=== PATIENT | female | born 1950 ===

== ENCOUNTER 2017-01-18 22:15 | Observation (INO) | payer BC ==
[2017-01-18 22:36] VITALS: BMI 26.1
--- NOTE | 2017-01-18 22:56 | ED PDOC ---
Arrival/HPI - General Chief Complaint: High Blood Pressure Time Seen by Provider: 01/18/17 22:38 Historian: Patient, Family (Daughter) - History of Present Illness Narrative History of Present Illness (Text): 01/18/17 22:51 Natalia Maldonado is a 66 year old female, whose past medical history includes hypertension, who presents to the Emergency department accompanied by family for high blood pressure. Patient states, via daughter acting as rn palliative, she had an episode of dizziness and near syncope at home earlier tonight. Daughter states patient was unable to stand or ambulate secondary to dizziness. Patient took her blood pressure, which was 179/81 and then bennie up to 195/110. Daughter states patient took Valsartan at 20:15 and Xanax at 21:15. Patient denies any dizziness currently. Patient reports she had a similar episode a few weeks ago and had her hypertensive medications switched by her PMD. Patient denies any vision changes, focal neurological deficits, chest pain, shortness of breath, nausea, vomiting, neck pain, headache, or any other complaints. PMD: Dr. Naeem Rosas Time/Duration: Other (tonight) Symptom Onset: Gradual Symptom Course: Unchanged Activities at Onset: Rest, Light Context: Home Past Medical History - Provider Review Nursing Documentation Reviewed: Yes - Cardiac Hx Hypertension: Yes - Psychiatric Hx Substance Use: No Family/Social History - Physician Review Nursing Documentation Reviewed: Yes Family/Social History: No Known Family HX Smoking Status: no Hx Alcohol Use: No Hx Substance Use: No Allergies/Home Meds Allergies/Adverse Reactions: Allergies No Known Allergies Allergy (Verified 01/18/17 22:26) Home Medications: Home Meds Medication Instructions Recorded Confirmed Alprazolam [Xanax] 0.25 mg PO PRN PRN 01/18/17 01/18/17 Valsartan [Diovan] 80 mg PO BID 01/18/17 01/18/17 Review of Systems - Physician Review All systems were reviewed & negative as marked: Yes - Review of Systems Constitutional: Normal. absent: Fevers Eyes: Normal ENT: Normal Respiratory: Normal. absent: SOB, Cough Cardiovascular: Other (+near-syncopal, +elevated blood pressure). absent: Chest Pain Gastrointestinal: Normal. absent: Abdominal Pain, Diarrhea, Nausea, Vomiting Genitourinary Female: Normal. absent: Dysuria, Frequency, Hematuria, Urine Output Changes Musculoskeletal: Normal. absent: Back Pain, Neck Pain Skin: Normal. absent: Rash Neurological: Dizziness. absent: Headache Endocrine: Normal Hemo/Lymphatic: Normal Psychiatric: Normal Physical Exam Vital Signs Reviewed: Yes Vital Signs Temp Pulse Resp BP Pulse Ox 01/19/17 00:53 84 16 156/82 H 100 01/18/17 22:32 97.5 F L 103 H 168/94 H 98 01/18/17 22:28 97.5 F L 103 H 18 168/94 H 98 Temperature: Afebrile Blood Pressure: Hypertensive Pulse: Regular Respiratory Rate: Normal Appearance: Positive for: Well-Appearing, Non-Toxic, Comfortable Pain Distress: None Mental Status: Positive for: Alert and Oriented X 3 - Systems Exam Head: Present: Atraumatic, Normocephalic Pupils: Present: PERRL Extroacular Muscles: Present: EOMI Conjunctiva: Present: Normal Ears: Present: Normal, NORMAL TM, Normal Canal. No: Erythema, TM Bulging, Fluid , TM Perf Mouth: Present: Moist Mucous Membranes Pharnyx: Present: Normal. No: ERYTHEMA, EXUDATE, TONSILS ENLARGED, Peritonsilar Swelling, Uvular Deviation, Muffled/Hoarse Voice, Strider, Soft Palate/Uvular Edema Nose (External): Present: Atraumatic Nose (Internal): Present: Normal Inspection Neck: Present: Normal Range of Motion. No: Meningeal Signs, MIDLINE TENDERNESS , Paraspinal Tenderness Respiratory/Chest: Present: Clear to Auscultation, Good Air Exchange. No: Respiratory Distress, Accessory Muscle Use Cardiovascular: Present: Regular Rate and Rhythm, Normal S1, S2. No: Murmurs Abdomen: Present: Normal Bowel Sounds. No: Tenderness, Distention, Peritoneal Signs Upper Extremity: Present: Normal Inspection. No: Cyanosis, Edema Lower Extremity: Present: Normal Inspection. No: Edema Neurological: Present: GCS=15, CN II-XII Intact, Speech Normal, Motor Func Grossly Intact, Normal Sensory Function, Normal Cerebellar Funct, Memory Normal Skin: Present: Warm, Dry, Normal Color. No: Rashes Psychiatric: Present: Alert, Oriented x 3, Normal Insight, Normal Concentration Medical Decision Making ED Course and Treatment: 01/18/17 22:51 Impression: 66 year old female complaining of elevated blood pressure, dizziness, and near- syncope tonight. Differential Diagnosis include but are not limited to: near-syncope vs. hypertension Plan: -- CT Head w/o contrast -- EKG -- Chest X-ray -- Labs, cardiac enzymes -- Reassess and disposition Progress Notes: 01/18/17 23:08 Reviewed EKG, sinus tachycardia at [address] bpm[address] Non-specific ST/T wave changes. 01/18/17 23:18 Reviewed Chest X-ray, shows no active disease. 01/19/17 00:31 Reviewed radiology, CT Head shows: No acute intracranial hemorrhage, or suspicious mass effect. 01/19/17 01:03 Case discussed with medical professionals research contracts supervisor, who is aware and agrees with plan. 01/19/17 01:[address] Mathews, who is aware and agrees with plan. Accepts pt in to hospitalist service. Pt will go to Telemetry observation for near-syncope. - Lab Interpretations Lab Results: 01/18/17 23:29 01/18/17 23:29 Lab Results 01/18/17 23:29: WBC 8.7, RBC 4.17, Hgb 12.7, Hct 37.4, MCV 89.7, MCH 30.5, MCHC 34.0, RDW 12.9, Plt Count 291, MPV 10.0 01/18/17 23:29: Sodium 138, Potassium 4.7, Chloride 103, Carbon Dioxide 26, Anion Gap 14, BUN 15, Creatinine 0.6, Est GFR ( Amer) > 60, Est GFR (Non- Af Amer) > 60, Random Glucose 204 H, Calcium 9.5, Total Bilirubin 0.6, AST 29, ALT 33, Alkaline Phosphatase 40, Lactate Dehydrogenase 415, Total Creatine Kinase 56, Troponin I < 0.01, Total Protein 7.4, Albumin 4.2, Globulin 3.2, Albumin/Globulin Ratio 1.3 01/18/17 23:29: PT 10.4, INR 0.96, APTT 24.5 I have reviewed the lab results: Yes - RAD Interpretation Narrative RAD Interpretations (Text): CT Head shows: Brain: No acute intracranial hemorrhage. No significant white matter disease. No edema. Ventricles: No significant ventriculomegaly. Bones: No acute displaced fracture. Sinuses: Unremarkable as visualized. No acute sinusitis. Mastoid air cells: Unremarkable as visualized. No mastoid effusion. IMPRESSION: No acute intracranial hemorrhage, or suspicious mass effect. Radiology Orders: 01/18/17 22:58 HEAD W/O CONTRAST [CT] Stat CHEST PORTABLE [RAD] Stat Leather Grader: ED Physician, Radiologist - EKG Interpretation Interpreted by ED Physician: Yes Type: 12 lead EKG - Scribe Statement The provider has reviewed the documentation as recorded by the Scribe Anu Thurman All medical record entries made by the Scribe were at my direction and personally dictated by me. I have reviewed the chart and agree that the record accurately reflects my personal performance of the history, physical exam, medical decision making, and the department course for this patient. I have also personally directed, reviewed, and agree with the discharge instructions and disposition. Disposition/Present on Arrival - Present on Arrival Any Indicators Present on Arrival: No History of DVT/PE: No History of Uncontrolled Diabetes: No Urinary Catheter: No History of Decub. Ulcer: No History Surgical Site Infection Following: None - Disposition Have Diagnosis and Disposition been Completed?: Yes Diagnosis: Near syncope Disposition: HOSPITALIZED Disposition Time: 01:18 Patient Plan: Observation Condition: STABLE Referrals: Mike Rosas MD [Primary Care Provider] - Follow up with primary
[2017-01-18 23:51] LABS: HEMATOCRIT 37.4 % (36.0-48.0); MEAN CELL VOLUME 89.7 fL (80.0-105.0); MEAN CORPUSCULAR HEMOGLOBIN 30.5 pg (25.0-35.0); RED CELL DISTRIBUTION WIDTH 12.9 % (11.5-14.5); WHITE BLOOD COUNT 8.7 10^3/ul (4.5-11.0)
[2017-01-18 23:57] LABS: INR 0.96 (0.93-1.08); PARTIAL THROMBOPLASTIN TIME 24.5 Seconds (23.7-30.8)
[2017-01-19 00:35] LABS: ALB/GLOB RATIO 1.3 (1.1-1.8); ALKALINE PHOSPHATASE 40 U/L (38-133); ALT/SGPT 33 U/L (7-56); AST/SGOT 29 U/L (15-39); BILIRUBIN,TOTAL 0.6 mg/dL (0.2-1.3); BLOOD UREA NITROGEN 15 mg/dL (7-21); CALCIUM 9.5 mg/dL (8.4-10.5); CARBON DIOXIDE 26 mmol/L (21-33); CHLORIDE 103 mmol/L (98-107); GFR AFRICAN-AMERICAN > 60; GLUCOSE,RANDOM 204 mg/dL (70-110); POTASSIUM 4.7 mmol/L (3.6-5.0); SODIUM 138 mmol/L (132-148); TOTAL PROTEIN 7.4 g/dL (5.8-8.3)
[2017-01-19 00:45] LABS: TROPONIN I < 0.01 ng/mL
[2017-01-19] MEDS ORDERED: Sodium Chloride 0.9% 1,000 ML IV SCH (01:45)
--- NOTE | 2017-01-19 01:47 | CP.PCM.HP ---
History of Present Illness - History of Present Illness History of Present Illness: History of Present Illness: The patient is a 66 year old woman with a history of hypertension who had a pre- syncopal episode yesterday at around 5pm while she was cooking in her home. The patient suddenly became dizzy and the room started to spin, causing her to lose her balance and almost fall. Luckily the patient's daughter was nearby and able to prevent her from falling down and injuring herself. She denies loss of consciousness or preceding chest pain or SOB. She does report associated diaphoresis. After the incident, the patients blood pressure (taken by her daughter) was elevated at 195/110. The patient had a similar pre-syncopal episode about 2 weeks ago, for which she presented to her PMD, who subsequently changed her blood pressure medication dosage and also started her on PRN Xanax for anxiety. The patient admits to being a generally anxious person. She denies any recent head trauma, focal neurological deficits, chest pain, SOB, cough, headaches, N/V, fever or chills. Home Medications: Valsartan 80mg po BID Xanax 0.25 PRN anxiety Allergies: NKDA Past Medical History: Per HPI Past Surgical History: None Family History: Patients father had a CABG in his 60s Social History: Denies tobacco and illicit drug use Small glass of wine with dinner every night Review of Systems: 14 bodily systems reviewed and found to be negative except as noted in the HPI Present on Admission - Present on Admission Any Indicators Present on Admission: No History of DVT/PE: No Past Patient History - Past Social History Smoking Status: no - CARDIAC Hx Hypertension: Yes - PSYCHIATRIC Hx Substance Use: No Meds Allergies/Adverse Reactions: Allergies Allergy/AdvReac Type Severity Reaction Status Date / Time No Known Allergies Allergy Verified 01/18/17 22:26 Physical Exam - Constitutional Appears: Well - Head Exam Head Exam: ATRAUMATIC, NORMAL INSPECTION, NORMOCEPHALIC - Eye Exam Eye Exam: EOMI, Normal appearance, PERRL Pupil Exam: NORMAL ACCOMODATION - ENT Exam ENT Exam: Mucous Membranes Moist, Normal Exam - Respiratory Exam Respiratory Exam: Clear to Auscultation Bilateral, NORMAL BREATHING PATTERN - Cardiovascular Exam Cardiovascular Exam: Tachycardia, REGULAR RHYTHM, +S1, +S2 - GI/Abdominal Exam GI & Abdominal Exam: Normal Bowel Sounds, Soft. absent: Tenderness - Rectal Exam Rectal Exam: Deferred - Extremities Exam Additional comments: Trace, symmetric bipedal edema - Neurological Exam Neurological exam: Alert, CN II-XII Intact, Normal Gait, Oriented x3, Reflexes Normal Additional comments: 5/5 muscle strength in all four extremities; Normal [id number] testing Results - Vital Signs Recent Vital Signs: Last Vital Signs Temp 97.5 F L 01/18/17 22:32 Pulse 84 01/19/17 00:53 Resp 16 01/19/17 00:53 BP 156/82 H 01/19/17 00:53 Pulse Ox 100 01/19/17 00:53 - Labs Result Diagrams: 01/18/17 23:29 01/18/17 23:29 - Imaging and Cardiology Chest x-ray Status: Report reviewed by me Assessment & Plan - Assessment and Plan (Free Text) Plan: Assessment and Plan: The patient is a 66 year old woman with a history of hypertension, being admitted for observation to the telemetry reeder for further work-up of her recurring pre-syncope and uncontrolled hypertension. 1. Recurring Pre-Syncope: -ddx: orthostasis vs vasovagal vs anxiety vs cardiac vs neurological -check orthostatics -start NS IV @ 100cc/hr -neuro checks every 4 hours -keep HOB above 30 degrees -fall precautions -check TSH, lipid panel, HgA1c and a UA -check serial trops and EKGs -2D-echo to evaluate for structural heart disease -cardiology consult placed (Dr. Calderon) -CT-head shows no acute abnormalities -will start ASA 81mg daily -continue home dose of PRN Xanax for anxiety 2. Uncontrolled Hypertension: -heart healthy diet (2 gram sodium) -will increase dose of Valsartan from 160mg to 320mg daily -will also start Norvasc 5mg daily -Labetalol 100mg po TID PRN SBP>165 DVT PPx: SCDs and SC Lovenox GI PPx: Protonix
[2017-01-19 02:58] VITALS: RESP 20
[2017-01-19 03:05] LABS: URINE BILIRUBIN NEGATIVE (NEGATIVE); URINE BLOOD NEGATIVE (NEGATIVE); URINE GLUCOSE (UA) 500 mg/dL (NEGATIVE); URINE KETONE NEGATIVE (NEGATIVE); URINE LEUKOCYTE ESTERASE NEGATIVE Leu/uL (NEGATIVE); URINE PROTEIN NEGATIVE mg/dL (<30 mg/dL); URINE UROBILINOGEN 0.2 E.U./dL (<1 E.U./dL)
[2017-01-19 03:06] LABS: URINE APPEARANCE CLEAR (CLEAR); URINE COLOR YELLOW (YELLOW)
[2017-01-19 05:08] VITALS: TEMP 97.6; O2SAT 98
--- NOTE | 2017-01-19 07:12 | CT ---
PROCEDURE: CT HEAD WITHOUT CONTRAST. HISTORY: dizzy COMPARISON: None available. TECHNIQUE: Axial computed tomography images were obtained through the head/brain without intravenous contrast. Radiation dose: Total exam DLP = 688 mGy-cm. This CT exam was performed using one or more of the following dose reduction techniques: Automated exposure control, adjustment of the mA and/or kV according to patient size, and/or use of iterative reconstruction technique. FINDINGS: HEMORRHAGE: No intracranial hemorrhage. BRAIN: No mass effect or edema. No atrophy or chronic microvascular ischemic changes. VENTRICLES: Unremarkable. No hydrocephalus. CALVARIUM: Unremarkable. PARANASAL SINUSES: Unremarkable as visualized. No significant inflammatory changes. MASTOID AIR CELLS: Unremarkable as visualized. No inflammatory changes. OTHER FINDINGS: None. IMPRESSION: Normal CT of the Head.
[2017-01-19 08:09] LABS: ADD MANUAL DIFF? NO
[2017-01-19 08:13] LABS: BASO # 0.04 K/mm3 (0.0-2.0); BASO % 0.6 % (0.0-3.0); EOS # 0.1 (0.0-0.7); EOS % 0.9 % (1.5-5.0); GRAN # 4.66 (1.4-6.5); GRAN % 66.3 % (50.0-68.0); HEMATOCRIT 37.1 % (36.0-48.0); LYMPH # 1.8 (1.2-3.4); LYMPH % 26.1 % (22.0-35.0); MEAN CELL VOLUME 91.2 fL (80.0-105.0); MEAN CORPUSCULAR HEMOGLOBIN 30.7 pg (25.0-35.0); MEAN CORPUSCULAR HGB CONC 33.7 g/dl (31.0-37.0); MEAN PLATELET VOLUME 10.7 fl (7.0-11.0); MONO # 0.4 (0.1-0.6); MONO % 6.1 % (1.0-6.0); PLATELET COUNT 305 10^3/uL (120.0-450.0)
--- NOTE | 2017-01-19 08:37 | RAD ---
HISTORY: Dizziness COMPARISON: No prior. FINDINGS: LUNGS: The lungs are well inflated and clear. PLEURA: No significant pleural effusion identified, no pneumothorax apparent. CARDIOVASCULAR: Normal. OSSEOUS STRUCTURES: There are multilevel degenerative changes in the spine. VISUALIZED UPPER ABDOMEN: Normal. OTHER FINDINGS: None. IMPRESSION: No active pulmonary disease.
[2017-01-19 08:44] LABS: ALB/GLOB RATIO 1.3 (1.1-1.8); ALKALINE PHOSPHATASE 38 U/L (38-133); ALT/SGPT 35 U/L (7-56); AST/SGOT 29 U/L (15-39); BLOOD UREA NITROGEN 12 mg/dL (7-21); CALCIUM 9.3 mg/dL (8.4-10.5); CARBON DIOXIDE 24 mmol/L (21-33); CHLORIDE 107 mmol/L (98-107); CHOLESTEROL 200 mg/dL (130-200); GFR AFRICAN-AMERICAN > 60; GLUCOSE,RANDOM 89 mg/dL (70-110); PHOSPHOROUS 3.9 mg/dL (2.5-4.5); POTASSIUM 4.3 mmol/L (3.6-5.0); SODIUM 139 mmol/L (132-148); TOTAL PROTEIN 6.8 g/dL (5.8-8.3)
[2017-01-19 08:47] LABS: TROPONIN I 0.02 ng/mL
[2017-01-19 09:13] VITALS: BP 152/82
[2017-01-19] MEDS ORDERED: Enoxaparin 30 mg Syringe SC SCH (10:00)
[2017-01-19] MEDS ORDERED: Pantoprazole 40 mg EC Tab PO SCH (10:00)
--- NOTE | 2017-01-19 11:26 | CON ---
DATE: 01/19/2017 HISTORY OF PRESENT ILLNESS: The patient is a 66-year-old woman with a history of hypertension who pr esents with dizziness, no syncope noted. The patient was found to have accelerated hypertension. No diabetes mellitus noted. The patient has no previous cardiac history. No chest pain or shortness of breath. SOCIAL HISTORY: The patient does not smoke. REVIEW OF SYSTEMS: A 14-point review of systems was reviewed in detail. No cardiac symptomatology n oted. PHYSICAL EXAMINATION: VITAL SIGNS: Blood pressure is 152/82, the heart rate is in the 80s. NECK: Negative JVD. LUNGS: Without rales. HEART: Reveals S1, S2. EXTREMITIES: Without edema. EKG is unremarkable. LABORATORIES: Troponins are negative x 2. The glucose was transiently elevated. Cholesterol is 200. IMPRESSION: 1. Accelerated hypertension. 2. Transient dizziness, which is now resolved. 3. Borderline hypercholesterolemia. 4. No evidence for acute coronary syndrome. Given these findings, the patient can be discharged today. I have given the patient Diovan 180 with hydrochlorothiazide for blood pressure control. We will bring the patient back for an outpatient car diac evaluation. Telly Calderon MD cc: [id number] TT: 01/19/2017 11:26:08 Confirmation # [id number] Dictation # [id number]
[2017-01-19 12:19] VITALS: PULSE 70
--- NOTE | 2017-01-19 12:55 | CP.PCM.DIS ---
<Rocio Mejía - Last Filed: 01/19/17 14:15> Provider - Provider Date of Admission: 01/19/17 01:18 Attending physician: Erica Lagunas MD Primary care physician: Mike Rosas MD Consults: Dr. Telly Calderon Time Spent in preparation of Discharge (in minutes): 35 Hospital Course - Lab Results Lab Results: Most Recent Lab Values WBC 7.0 10^3/ul (4.5-11.0) 01/19/17 07:30 RBC 4.07 10^6/uL (3.5-6.1) 01/19/17 07:30 Hgb 12.5 gm/dL (12.0-16.0) 01/19/17 07:30 Hct 37.1 % (36.0-48.0) 01/19/17 07:30 MCV 91.2 fL (80.0-105.0) 01/19/17 07:30 MCH 30.7 pg (25.0-35.0) 01/19/17 07:30 MCHC 33.7 g/dl (31.0-37.0) 01/19/17 07:30 RDW 13.0 % (11.5-14.5) 01/19/17 07:30 Plt Count 305 10^3/uL (120.0-450.0) 01/19/17 07:30 MPV 10.7 fl (7.0-11.0) 01/19/17 07:30 Gran % 66.3 % (50.0-68.0) 01/19/17 07:30 Lymph % (Auto) 26.1 % (22.0-35.0) 01/19/17 07:30 [place] % (Auto) 6.1 % (1.0-6.0) H 01/19/17 07:30 Eos % (Auto) 0.9 % (1.5-5.0) L 01/19/17 07:30 Baso % (Auto) 0.6 % (0.0-3.0) 01/19/17 07:30 Gran # 4.66 (1.4-6.5) 01/19/17 07:30 Lymph # 1.8 (1.2-3.4) 01/19/17 07:30 [place] # 0.4 (0.1-0.6) 01/19/17 07:30 Eos # 0.1 (0.0-0.7) 01/19/17 07:30 Baso # 0.04 K/mm3 (0.0-2.0) 01/19/17 07:30 PT 10.4 Seconds (9.9-11.8) 01/18/17 23:29 INR 0.96 (0.93-1.08) 01/18/17 23:29 APTT 24.5 Seconds (23.7-30.8) 01/18/17 23:29 Sodium 139 mmol/L (132-148) 01/19/17 07:30 Potassium 4.3 mmol/L (3.6-5.0) 01/19/17 07:30 Chloride 107 mmol/L (98-107) 01/19/17 07:30 Carbon Dioxide 24 mmol/L (21-33) 01/19/17 07:30 Anion Gap 12 (10-20) 01/19/17 07:30 BUN 12 mg/dL (7-21) 01/19/17 07:30 Creatinine 0.6 mg/dL (0.5-1.4) 01/19/17 07:30 Est GFR ( Amer) > 60 01/19/17 07:30 Est GFR (Non-Af Amer) > 60 01/19/17 07:30 Random Glucose 89 mg/dL (70-110) 01/19/17 07:30 Hemoglobin A1c 5.9 % (4.2-6.5) 01/19/17 07:40 Calcium 9.3 mg/dL (8.4-10.5) 01/19/17 07:30 Phosphorus 3.9 mg/dL (2.5-4.5) 01/19/17 07:30 Magnesium 2.0 mg/dL (1.7-2.2) 01/19/17 07:30 Total Bilirubin 1.0 mg/dL (0.2-1.3) 01/19/17 07:30 AST 29 U/L (15-39) 01/19/17 07:30 ALT 35 U/L (7-56) 01/19/17 07:30 Alkaline Phosphatase 38 U/L (38-133) 01/19/17 07:30 Lactate Dehydrogenase 415 U/L (333-699) 01/18/17 23:29 Total Creatine Kinase 54 U/L (35-230) 01/19/17 07:30 Troponin I 0.02 ng/mL D 01/19/17 07:30 NT-Pro-B Natriuret Pep 186 pg/mL (0-450) 01/19/17 07:30 Total Protein 6.8 g/dL (5.8-8.3) 01/19/17 07:30 Albumin 3.9 g/dL (3.0-4.8) 01/19/17 07:30 Globulin 2.9 gm/dL 01/19/17 07:30 Albumin/Globulin Ratio 1.3 (1.1-1.8) 01/19/17 07:30 Triglycerides 48 mg/dL (35-160) 01/19/17 07:30 Cholesterol 200 mg/dL (130-200) 01/19/17 07:30 LDL Cholesterol Direct 124 mg/dL (0-129) 01/19/17 07:30 HDL Cholesterol 71 mg/dL (29-60) H 01/19/17 07:30 TSH 3rd Generation 1.30 mIU/mL (0.46-4.68) 01/19/17 07:40 Urine Color Yellow (YELLOW) 01/19/17 02:50 Urine Appearance Clear (CLEAR) 01/19/17 02:50 Urine pH 7.0 (4.7-8.0) 01/19/17 02:50 Ur Specific [place] 1.010 (1.005-1.035) 01/19/17 02:50 Urine Protein Negative mg/dL (<30 mg/dL) 01/19/17 02:50 Urine Glucose (UA) 500 mg/dL (NEGATIVE) H 01/19/17 02:50 Urine Ketones Negative mg/dL (NEGATIVE) 01/19/17 02:50 Urine Blood Negative (NEGATIVE) 01/19/17 02:50 Urine Nitrate Negative (NEGATIVE) 01/19/17 02:50 Urine Bilirubin Negative (NEGATIVE) 01/19/17 02:50 Urine Urobilinogen 0.2 E.U./dL (<1 E.U./dL) 01/19/17 02:50 Ur Leukocyte Esterase Negative Mary/uL (NEGATIVE) 01/19/17 02:50 - Hospital Course Hospital Course: 66 year old woman with a history of hypertension who had a pre-syncopal episode during PM of 01/17/2017. The patient suddenly became dizzy and the room started to spin, causing her to lose her balance and almost fall. Luckily the patient' s daughter was nearby and able to prevent her from falling down and injuring herself. Measured home BP elevated at 195/110. Head CT negative, and initial BP elevated. Initial troponin is negative, EKG NSR. Telemetry obs for near- syncope. On floor: IV NS, ASA 81 daily, and increased pt's home valsartan for blood pressure control. Dizziness and accelerated blood pressure resolved during admission. Troponins negative times 2. Pt discharged in stable condition with the following directions: You are discharged to home. Please see your primary care physician within a week. Please follow-up with Dr. Calderon for outpatient cardiac evaluation. Please stop taking your current home valsartan prescription and instead take Diovan 160-12.5mg one tab daily for your blood pressure, which is the paper prescription that Dr. Calderon gave you earlier today. Otherwise please continue your home medications. Please return to the hospital for worsening of symptoms. Discharge Exam - Head Exam Head Exam: ATRAUMATIC, NORMOCEPHALIC - Eye Exam Eye Exam: EOMI, Normal appearance Pupil Exam: NORMAL ACCOMODATION, PERRL - Respiratory Exam Respiratory Exam: NORMAL BREATHING PATTERN, UNREMARKABLE - Cardiovascular Exam Cardiovascular Exam: +S1, +S2 - GI/Abdominal Exam GI & Abdominal Exam: Soft. absent: Tenderness - Exam External exam: absent: Ecchymosis, Erythema - Extremities Exam Extremities exam: normal capillary refill, pedal pulses present - Back Exam Back exam: absent: CVA tenderness (L), CVA tenderness (R) - Psychiatric Exam Psychiatric exam: Normal Affect, Normal Mood - Skin Skin Exam: Intact, Normal Color Discharge Plan - Discharge Medications Prescriptions: Valsartan/Hydrochlorothiazide [Diovan Hct 160-12.5 mg Tab] 1 each PO DAILY #90 tablet - Follow Up Plan Condition: STABLE Disposition: HOME/ ROUTINE Instructions: Syncope (DC) Additional Instructions: You are discharged to home. Please see your primary care physician within a week. Please follow-up with Dr. Calderon for outpatient cardiac evaluation. Please stop taking your current home valsartan prescription and instead take Diovan 160-12.5mg one tab daily for your blood pressure, which is the paper prescription that Dr. Calderon gave you earlier today. Otherwise please continue your home medications. Please return to the hospital for worsening of symptoms. Referrals: Mike Rosas MD [Primary Care Provider] - Telly Calderon MD [Staff Provider] - <Janneth BEAULIEU,Erica - Last Filed: 01/19/17 16:27> Provider - Provider Date of Admission: 01/19/17 01:18 Attending physician: Erica Lagunas MD Primary care physician: Mike Rosas MD Hospital Course - Lab Results Lab Results: Most Recent Lab Values WBC 7.0 10^3/ul (4.5-11.0) 01/19/17 07:30 RBC 4.07 10^6/uL (3.5-6.1) 01/19/17 07:30 Hgb 12.5 gm/dL (12.0-16.0) 01/19/17 07:30 Hct 37.1 % (36.0-48.0) 01/19/17 07:30 MCV 91.2 fL (80.0-105.0) 01/19/17 07:30 MCH 30.7 pg (25.0-35.0) 01/19/17 07:30 MCHC 33.7 g/dl (31.0-37.0) 01/19/17 07:30 RDW 13.0 % (11.5-14.5) 01/19/17 07:30 Plt Count 305 10^3/uL (120.0-450.0) 01/19/17 07:30 MPV 10.7 fl (7.0-11.0) 01/19/17 07:30 Gran % 66.3 % (50.0-68.0) 01/19/17 07:30 Lymph % (Auto) 26.1 % (22.0-35.0) 01/19/17 07:30 [place] % (Auto) 6.1 % (1.0-6.0) H 01/19/17 07:30 Eos % (Auto) 0.9 % (1.5-5.0) L 01/19/17 07:30 Baso % (Auto) 0.6 % (0.0-3.0) 01/19/17 07:30 Gran # 4.66 (1.4-6.5) 01/19/17 07:30 Lymph # 1.8 (1.2-3.4) 01/19/17 07:30 [place] # 0.4 (0.1-0.6) 01/19/17 07:30 Eos # 0.1 (0.0-0.7) 01/19/17 07:30 Baso # 0.04 K/mm3 (0.0-2.0) 01/19/17 07:30 PT 10.4 Seconds (9.9-11.8) 01/18/17 23:29 INR 0.96 (0.93-1.08) 01/18/17 23:29 APTT 24.5 Seconds (23.7-30.8) 01/18/17 23:29 Sodium 139 mmol/L (132-148) 01/19/17 07:30 Potassium 4.3 mmol/L (3.6-5.0) 01/19/17 07:30 Chloride 107 mmol/L (98-107) 01/19/17 07:30 Carbon Dioxide 24 mmol/L (21-33) 01/19/17 07:30 Anion Gap 12 (10-20) 01/19/17 07:30 BUN 12 mg/dL (7-21) 01/19/17 07:30 Creatinine 0.6 mg/dL (0.5-1.4) 01/19/17 07:30 Est GFR ( Amer) > 60 01/19/17 07:30 Est GFR (Non-Af Amer) > 60 01/19/17 07:30 Random Glucose 89 mg/dL (70-110) 01/19/17 07:30 Hemoglobin A1c 5.9 % (4.2-6.5) 01/19/17 07:40 Calcium 9.3 mg/dL (8.4-10.5) 01/19/17 07:30 Phosphorus 3.9 mg/dL (2.5-4.5) 01/19/17 07:30 Magnesium 2.0 mg/dL (1.7-2.2) 01/19/17 07:30 Total Bilirubin 1.0 mg/dL (0.2-1.3) 01/19/17 07:30 AST 29 U/L (15-39) 01/19/17 07:30 ALT 35 U/L (7-56) 01/19/17 07:30 Alkaline Phosphatase 38 U/L (38-133) 01/19/17 07:30 Lactate Dehydrogenase 415 U/L (333-699) 01/18/17 23:29 Total Creatine Kinase 54 U/L (35-230) 01/19/17 07:30 Troponin I 0.02 ng/mL D 01/19/17 07:30 NT-Pro-B Natriuret Pep 186 pg/mL (0-450) 01/19/17 07:30 Total Protein 6.8 g/dL (5.8-8.3) 01/19/17 07:30 Albumin 3.9 g/dL (3.0-4.8) 01/19/17 07:30 Globulin 2.9 gm/dL 01/19/17 07:30 Albumin/Globulin Ratio 1.3 (1.1-1.8) 01/19/17 07:30 Triglycerides 48 mg/dL (35-160) 01/19/17 07:30 Cholesterol 200 mg/dL (130-200) 01/19/17 07:30 LDL Cholesterol Direct 124 mg/dL (0-129) 01/19/17 07:30 HDL Cholesterol 71 mg/dL (29-60) H 01/19/17 07:30 TSH 3rd Generation 1.30 mIU/mL (0.46-4.68) 01/19/17 07:40 Urine Color Yellow (YELLOW) 01/19/17 02:50 Urine Appearance Clear (CLEAR) 01/19/17 02:50 Urine pH 7.0 (4.7-8.0) 01/19/17 02:50 Ur Specific [place] 1.010 (1.005-1.035) 01/19/17 02:50 Urine Protein Negative mg/dL (<30 mg/dL) 01/19/17 02:50 Urine Glucose (UA) 500 mg/dL (NEGATIVE) H 01/19/17 02:50 Urine Ketones Negative mg/dL (NEGATIVE) 01/19/17 02:50 Urine Blood Negative (NEGATIVE) 01/19/17 02:50 Urine Nitrate Negative (NEGATIVE) 01/19/17 02:50 Urine Bilirubin Negative (NEGATIVE) 01/19/17 02:50 Urine Urobilinogen 0.2 E.U./dL (<1 E.U./dL) 01/19/17 02:50 Ur Leukocyte Esterase Negative Mary/uL (NEGATIVE) 01/19/17 02:50 Attending/Attestation - Attestation I have personally seen and examined this patient.: Yes I have fully participated in the care of the patient.: Yes I have reviewed all pertinent clinical information, including history, physical exam and plan: Yes Notes (Text): 01/19/17 16:23 Patient was seen and examined with medical assistant dermatology .Agreed with resident assessment and plan. Management plan was discussed in detail with patient Education was provided. 66 year old woman with a history of hypertension was admitted with dizziness, and Pre syncope due to uncontrol HTN, Patient blood pressure has improved.Her symptoms has resolved .She is ambulatory.She was evaluated by cardiology, no further inpatient work up is recommended.Patient will be discharged home on Diovon 160/HCT 12.5 MG and will follow up with PCP and cardiology.
--- NOTE | 2017-01-19 16:22 | CARD ---
APPROVED REPORT EKG Measurement Heart [id number] <Conclusion> Sinus tachycardia Nonspecific ST abnormality Abnormal ECG
== END 2017-01-19 13:23 | disposition home or self-care (01) ==
LOC: ED 22:15 → ERH 01-19 01:18 → 2RNO 01-19 02:26
PROVIDERS: ADMIT Internal Medicine; ATTEND Internal Medicine
DX: R55 Syncope and collapse (principal); R42 Dizziness and giddiness; I10 Essential (primary) hypertension; F41.9 Anxiety disorder, unspecified
CPT/HCPCS: 36415; 70450; 71010; 80053; 80061; 81003; 82550; 83036; 83615; 83735; 83880; 84100; 84443; 84484; 85025; 85027; 85610; 85730; 93005; 99285; G0378; J1650; J7040